=== PATIENT | male | born 1980 | race African-American/Black ===

== ENCOUNTER 2017-10-23 19:00 | Emergency (ER) | payer OTHER ==
[~2017-10-23] VITALS: Ht 180.3 cm; Wt 113.4 kg
[2017-10-23] MEDS ORDERED: ASPIR 8181 MG PO (19:31)
[2017-10-23] MEDS ORDERED: FLOMAX0.4 MG PO (19:32)
[2017-10-23] MEDS ORDERED: CLONIDINE HCL0.3 M3 PO (19:32)
[2017-10-23] MEDS ORDERED: INDERAL XL120 MG PO (19:33)
[2017-10-23] MEDS ORDERED: PENLAC6.6 ML TOP (19:34)
[2017-10-23] MEDS ORDERED: ROBAXIN 750 MG750 M1 PO (19:35)
[2017-10-23] MEDS ORDERED: DULOXETINE HCL60 MG PO (19:36)
[2017-10-23] MEDS ORDERED: HYDROXYZINE HCL25 M1 PO ×2 (19:37)
[2017-10-23] MEDS ORDERED: GLUCOPHAGE XR500 MG PO (19:38)
[2017-10-23 20:18] VITALS: BP 118/71
[2017-10-23] MEDS ORDERED: CORTISPORIN OTI10 ML OTIC (20:35)
== END 2017-10-23 20:47 | disposition home or self-care (01) ==
LOC: ER 19:00
DX: H60.92 Unspecified otitis externa, left ear (principal); E11.9 Type 2 diabetes mellitus without complications; I10 Essential (primary) hypertension; F43.10 Post-traumatic stress disorder, unspecified; H40.9 Unspecified glaucoma; F17.210 Nicotine dependence, cigarettes, uncomplicated